=== PATIENT | male | born 1990 | race Caucasian/White ===

== ENCOUNTER 2017-08-19 01:17 | Emergency (ER) | payer SELFPAY ==
[~2017-08-19] VITALS: Ht 175.3 cm; Wt 83.3 kg
[~2017-08-19 01:17] MED LIST: FIORICET,ESG1 TABLET PO; NAPROSYN500 MG PO; ZOFRAN4 MG PO
[2017-08-19 02:09] LABS: HEMATOCRIT 41.8 % (38.0-50.0); HEMOGLOBIN 14.6 G/DL (12.5-16.6); MCH 31.1 PG (29.0-34.0); MCHC 34.9 G/DL (30.0-36.0); MCV 88.9 FL (86-99); PLATELET COUNT 158 K/uL (156-360); RBC DIS.WIDTH-CV 12.8 % (11.8-14.6); RBC DIS.WIDTH-SD 41.5 % (39-53); WHITE BLOOD COUNT 7.2 K/uL (4.1-10.2)
[2017-08-19 02:20] LABS: CHLORIDE 107 mEq/L (99-109); POTASSIUM 3.7 mEq/L (3.7-5.4); SODIUM 143 mEq/L (136-147)
[2017-08-19 02:22] LABS: GLUCOSE 105 mg/dL (70-99)
[2017-08-19 02:25] LABS: CREATININE 0.8 mg/dL (0.6-1.3); GFR ESTIMATE (CALCULATED) > 59 mL/min/ (58.99-99999); SERUM ETHYL ALCOHOL 242 mg/dL
[2017-08-19 02:26] VITALS: BP 129/86
[2017-08-19 02:26] LABS: UREA NITROGEN (BUN) 8 mg/dL (9-23)
== END 2017-08-19 02:24 | disposition left against medical advice (07) ==
LOC: EME 01:17
PROVIDERS: Emergency Medicine
DX: F10.129 Alcohol abuse with intoxication, unspecified (principal); Y90.8 Blood alcohol level of 240 mg/100 ml or more; G40.909 Epilepsy, unspecified, not intractable, without status epilepticus; F12.90 Cannabis use, unspecified, uncomplicated; K50.90 Crohn's disease, unspecified, without complications; F17.200 Nicotine dependence, unspecified, uncomplicated; Z88.5 Allergy status to narcotic agent; Z88.0 Allergy status to penicillin
CPT/HCPCS: 70450; 80048; 81003; 85027; 99281; 99284; G0480